=== PATIENT | female | born 1950 | race Caucasian/White ===

== ENCOUNTER 2017-06-12 07:48 | Day surgery (SDC) | payer BC, MEDICARE ==
[2017-06-08 10:00] VITALS: BP 153/79
[2017-06-08 10:16] LABS: BASOPHILS % (AUTO) 1.2 % (0.0-5.0); EOSINOPHILS % (AUTO) 3.7 % (0.0-8.0); HEMATOCRIT 36.2 % (36-48); LYMPHOCYTES % (AUTO) 27.8 % (21.0-51.0); MEAN CORPUSCULAR HEMOGLOBIN 28.3 pg (27.0-33.0); MEAN CORPUSCULAR HGB CONC 32.7 g/dL (32.0-36.0); MEAN CORPUSCULAR VOLUME 86.6 fL (79-99); MONOCYTES % (AUTO) 7.8 % (3.0-13.0); NEUTROPHILS % (AUTO) 59.5 % (40.0-77.0); PLATELET COUNT (AUTO) 308 K/uL (130-400); RED BLOOD CELL COUNT(AUTO) 4.18 MIL/uL (4.00-5.50); RED CELL DISTRIBUTION WIDTH 14.9 % (11.0-15.5); WHITE BLOOD COUNT (AUTO) 6.6 K/uL (4.8-10.8)
[2017-06-08 10:21] LABS: APPEARANCE,URINE Cloudy (CLEAR); BILIRUBIN,URINE Negative (NEGATIVE); COLOR,URINE Yellow (YELLOW); GLUCOSE, URINE (UA) Negative (NEGATIVE); KETONES,URINE Trace mg/dL (NEGATIVE); LEUKOCYTE ESTERASE ,URINE Moderate (NEGATIVE); NITRATE,URINE Negative (NEGATIVE); OCCULT BLOOD,URINE Negative (NEGATIVE); PROTEIN,URINE Negative (NEGATIVE)
[2017-06-08 10:23] LABS: POTASSIUM 4.6 mmol/L (3.5-5.1)
[2017-06-08 10:25] LABS: BACTERIA,URINE Rare /HPF (None Seen); RBC,URINE 0-1 /HPF (0-1); SQUAMOUS EPITHELIAL CELL,UR Few /LPF (0-2)
[2017-06-08 10:27] LABS: INR 0.95 (0.85-1.15); PARTIAL THROMBOPLASTIN TIME 29.3 SEC (26.3-35.5)
[~2017-06-12] VITALS: Ht 167.6 cm; Wt 110.7 kg
[2017-06-12] VITALS (10 sets, daily range): BP systolic 119–175; BP diastolic 52–90
[~2017-06-12 07:48] MED LIST: CALC600T12 PO; CETI10CA5 PO; CLON0.1T PO; ERGO2000 PO; ESOM40CA54 PO; GABA-531 PO; HYDR-4068 PO; INSLAN SQ; INSU100C6 SQ; LABE300T PO; METF10004 PO; MULT-1203 PO; POTA99TA21 PO; ROSU20TA38 PO; SERT50TA12 PO; SITA100T12 PO; TRAZ-147 PO; VALS1TAB79 PO; VITAMIN C PO
[2017-06-12] MEDS ORDERED: DICL75TA5 PO (09:14)
[2017-06-12] MEDS ORDERED: VITA400C70 PO (09:14)
[2017-06-12] MEDS ORDERED: SODIUM CHLORIDE 0.9% 1000ML 1,000 ML IV ONE (09:38)
[2017-06-12] MEDS ORDERED: IOPAMIDOL-370 75 ML VIAL IV ONE (10:45)
[2017-06-12] MEDS ORDERED: IOPAMIDOL-370 100 ML VIAL IV ONE (10:45)
[2017-06-12] MEDS ORDERED: SODIUM BICARB 50MEQ 50ML VIAL ONE (10:45)
[2017-06-12] MEDS ORDERED: LIDOCAINE HCL 2% 20ML ONE (10:45)
[2017-06-12] MEDS ORDERED: ISOVUE-370 50ML VIAL IV ONE (10:45)
[2017-06-12] MEDS ORDERED: HEPARIN SODIUM 1000UNIT/ML 10ML VIAL ONE (10:45)
[2017-06-12] MEDS ORDERED: MEPERIDINE-PF 50 MG/ML SYG ONE (10:46)
[2017-06-12] MEDS ORDERED: MIDAZOLAM HCL 1 MG/ML 2ML VIAL ONE (10:46)
[2017-06-12] MEDS ORDERED: NITROGLYCERIN 5 MG/ML 10 ML VIAL IV ONE (10:47)
[2017-06-12] MEDS ORDERED: ASPI-555 PO (11:21)
[2017-06-12] MEDS ORDERED: SODIUM CHLORIDE 0.9% 1000ML 1,000 ML IV SCH (11:35)
[2017-06-12] MEDS ORDERED: GLUCAGON 1MG KIT 1 MG ML IM PRN (11:45)
[2017-06-12] MEDS ORDERED: DEXTROSE 50%-WATER 50 ML DISP.SYRIN IV PRN (11:45)
[2017-06-12] MEDS ORDERED: ACETAMINOPHEN 325 MG TAB PO ONE (14:30)
[2017-06-12] MEDS ORDERED: INSULIN HUMULIN R 100 UNIT/ML 3ML SQ SCH (16:30)
== END 2017-06-12 16:00 | disposition home or self-care (01) ==
LOC: DAH 07:48
PROVIDERS: ATTEND Internal Medicine Cardiovascular Disease
DX: I20.9 Angina pectoris, unspecified (principal); I10 Essential (primary) hypertension; E78.5 Hyperlipidemia, unspecified; E11.42 Type 2 diabetes mellitus with diabetic polyneuropathy; E66.9 Obesity, unspecified; F32.9 Major depressive disorder, single episode, unspecified; Z68.41 Body mass index [BMI] 40.0-44.9, adult; Z79.84 Long term (current) use of oral hypoglycemic drugs; Z79.899 Other long term (current) drug therapy; Z98.890 Other specified postprocedural states; Z79.01 Long term (current) use of anticoagulants
CPT/HCPCS: 36252; 36415; 71045; 80048; 81001; 82948 ×2; 85025; 85610; 85730; 93005; 93458; C1760; C1894; J1644; J2175; J2250; J3490 ×3; J7030; Q9967 ×2; 99152; 99153